=== PATIENT | female | born 1945 | race Caucasian/White ===

== ENCOUNTER → 2018-06-08 08:36 | Outpatient (CLI) | payer MEDICARE, OTHER, SELFPAY ==
[2018-06-08 09:39] LABS: Add Manual Diff / Slide Review NO; Eosinophils Percent Auto 2.1 % (2-4); Hematocrit 35.3 % (36-46); Hemoglobin 12.4 g/dL (12.0-16.0); Lymphocytes Percent Auto 37.6 % (25-40); Mean Corpuscular HGB Conc 35.2 % (30-36); Mean Corpuscular Hemoglobin 30.3 PG (26-34); Mean Corpuscular Volume 86.1 fL (80-100); Monocytes Percent Auto 8.5 % (3-14); Neutrophils Absolute Auto 3000 /uL (3000-5900); Neutrophils Percent Auto 50.8 % (50-75); Platelet Count 201 X10^3/uL (150-400); Red Cell Distribution Width 13.1 % (11.6-14.8); White Blood Cell Count 5.9 X10^3/uL (4.5-11.0)
[2018-06-08 09:52] LABS: Alanine Aminotransferase 32 IU/L (9-52); Albumin 4.7 g/dL (3.5-5.0); Albumin Globulin Ratio 1.7 (1.0-2.8); Alkaline Phosphatase 62 U/L (38-126); Aspartate Aminotransferase 40 IU/L (14-36); BUN Creatinine Ratio 18.8 (6-22); Bilirubin Total 0.5 mg/dL (0.2-1.3); Blood Urea Nitrogen 15 mg/dL (7-17); Calcium 9.4 mg/dL (8.4-10.2); Carbon Dioxide 31 mmol/L (22-32); Chloride 98 mmol/L (98-107); Cholesterol 170 mg/dL (140-199); Estimated Glomerular Filt Rate > 60.0 mL/min (>60); Globulin 2.8 g/dL (1.7-4.1); Glucose 106 mg/dL (80-110); HDL Cholesterol 46 mg/dL (40-60); HEMOLYSIS < 15 (0-50); LDL Cholesterol Calculated 53 mg/dL (<100); Potassium 3.5 mmol/L (3.4-5.1); Sodium 143 mmol/L (137-145); Total Protein 7.5 g/dL (6.3-8.2); Triglycerides 355 mg/dL (35-150)
[2018-06-08 09:56] LABS: Hemoglobin A1C% w Est Avg Glu 6.1 % (4.0-6.0)
== END ==
PROVIDERS: Family Provider Family Medicine; PCP Family Medicine; Visit Provider Family Medicine
DX: E11.9 Type 2 diabetes mellitus without complications (principal); E78.5 Hyperlipidemia, unspecified; I10 Essential (primary) hypertension
CPT/HCPCS: 36415; 80053; 80061; 83036; 85025

== ENCOUNTER → 2018-06-15 08:36 | Outpatient (CLI) | payer MEDICARE, OTHER, SELFPAY ==
--- NOTE | 2018-06-15 08:37 | DI.MG.S_ITS ---
BILATERAL DIGITAL SCREENING MAMMOGRAM 3D/2D WITH CAD POST LUMPECTOMY: 06/15/2018 CLINICAL: Routine screening. Personal history of right breast cancer. Family history of breast cancer. Comparison is made to exams dated: 06/01/2017 mammogram, 05/26/2016 mammogram, and 05/24/2015 mammogram - [facility]. There are scattered fibroglandular elements in both breasts. Current study was also evaluated with a Computer Aided Detection (CAD) system. There is a focal asymmetry in the left breast at 2 o'clock middle depth. No other significant masses, calcifications, or other findings are seen in either breast. IMPRESSION: INCOMPLETE: NEEDS ADDITIONAL IMAGING EVALUATION The focal asymmetry in the left breast is indeterminate. Additional views with possible ultrasound are recommended. This exam was interpreted at Station ID: [id number]. NOTE: For mammograms, a report in lay terms will be sent to the patient. Approximately 15% of breast malignancies will not be visualized mammographically. In the management of a palpable breast mass, a negative mammogram must not discourage biopsy of a clinically suspicious lesion. Electronically Signed By: Ewa guajardo/neftali:06/15/2018 15:05:29 letter sent: Additional Imaging Needed ACR BI-RADS Category 0: Incomplete [id number]
== END ==
PROVIDERS: Family Provider Family Medicine; PCP Family Medicine; Visit Provider Family Medicine
DX: Z12.31 Encounter for screening mammogram for malignant neoplasm of breast (principal); Z85.3 Personal history of malignant neoplasm of breast; Z80.3 Family history of malignant neoplasm of breast
CPT/HCPCS: 77063; 77067

== ENCOUNTER → 2018-06-15 11:57 | Outpatient (CLI) | payer MEDICARE, OTHER, SELFPAY ==
--- NOTE | 2018-06-15 12:00 | DI.RAD.S_ITS ---
PROCEDURE: XR THORACIC SPINE 3V INDICATIONS: point tenderness over T4 spinous process TECHNIQUE: 3 views of the thoracic spine were acquired. COMPARISON: None. FINDINGS: Bones: No fractures or dislocations. No suspicious bony lesions. Dextroscoliosis centered at the T10 level.Diffuse endplate spurring and sclerosis. There is mild diffuse disc space narrowing. Surgical clip projecting in the right upper quadrant. Incidentally noted lower cervical degeneration IMPRESSION: Dextroscoliosis and diffuse discogenic changes as above. Dictated by: Magan Parnell M.D. on 06/15/2018 at 12:34 Approved by: Magan Parnell M.D. on 06/15/2018 at 12:37
[2018-06-15 14:38] LABS: TSH w/ Reflex to FT4 1.01 uIU/mL (0.47-4.68)
== END ==
PROVIDERS: Family Provider Family Medicine; PCP Family Medicine; Visit Provider Family Medicine
DX: M51.24 Other intervertebral disc displacement, thoracic region (principal); M50.320 Other cervical disc degeneration, mid-cervical region, unspecified level; M41.84 Other forms of scoliosis, thoracic region; R53.83 Other fatigue
CPT/HCPCS: 36415; 72072; 84443

== ENCOUNTER → 2018-07-12 14:38 | Outpatient (CLI) | payer MEDICARE, OTHER, SELFPAY ==
--- NOTE | 2018-07-12 14:39 | DI.US.S_ITS ---
PROCEDURE: US BREAST LT LIMITED COMPARISON: None. INDICATIONS: Abnormal screening Mammo FINDINGS: IMPRESSION: Dictated by: Ewa Pedro M.D. on 07/12/2018 at 18:29 Approved by: Ewa Pedro M.D. on 07/12/2018 at 18:31
--- NOTE | 2018-07-12 14:39 | DI.MG.S_ITS ---
UNILATERAL LEFT DIGITAL DIAGNOSTIC MAMMOGRAM 3D/2D WITH ADDITIONAL VIEWS: 07/12/2018 CLINICAL: Additional evaluation requested from prior study. Personal history of breast cancer. Comparison is made to exams dated: 06/15/2018 mammogram, 06/01/2017 mammogram, 11/10/2016 mammogram, and 05/26/2016 mammogram - [facility]. There are scattered fibroglandular elements in left breast. There is a focal asymmetry in the left breast at 5 o'clock middle depth. This is seen in additional views. No other significant masses or calcifications are seen in the breast. IMPRESSION: INCOMPLETE: NEEDS ADDITIONAL IMAGING EVALUATION The focal asymmetry in the left breast is indeterminate. A targeted ultrasound of the left breast is recommended and will be performed immediately following this exam. This exam was interpreted at Station ID: [id number]. NOTE: For mammograms, a report in lay terms will be sent to the patient. Approximately 15% of breast malignancies will not be visualized mammographically. In the management of a palpable breast mass, a negative mammogram must not discourage biopsy of a clinically suspicious lesion. Electronically Signed By: Ewa guajardo/:07/12/2018 15:12:27 letter sent: Additional Imaging Needed ACR BI-RADS Category 0: Incomplete [id number]
== END ==
PROVIDERS: PCP Family Medicine; Visit Provider Family Medicine
DX: R92.8 Other abnormal and inconclusive findings on diagnostic imaging of breast (principal); N63.23 Unspecified lump in the left breast, lower outer quadrant; Z85.3 Personal history of malignant neoplasm of breast
CPT/HCPCS: 76642; 77065; G0279

== ENCOUNTER → 2018-08-05 08:45 | Outpatient (CLI) | payer MEDICARE, OTHER, SELFPAY ==
--- NOTE | 2018-08-05 08:49 | DI.US.S_ITS ---
ULTRASOUND GUIDED BIOPSY LEFT BREAST USING VACUUM DEVICE WITH MARKING DEVICE INSERTED AND POST MAMMOGRAPHIC IMAGIN08/05/2018 CLINICAL: Left breast mass. PATIENT CONSENT: Risks (minor bleeding, infection, vasovagal reaction and repeat procedure), benefits and alternatives were explained to the patient and written informed consent was obtained. Correlation is made to exams dated: 08/05/2018 mammogram, 07/12/2018 ultrasound, and 07/12/2018 mammogram - [facility]. An ultrasound guided biopsy using real-time ultrasound was performed for the 1.5 cm x 1.7 cm x 0.9 cm taller than wide irregular shaped mass located in the left breast at 5 o'clock middle depth 8 cm from the nipple. The skin was prepped in the usual manner. Local anesthetic was administered to the access site. A small incision was made in the breast. The abnormality was approached from the lateral aspect. A 10 gauge biopsy needle was placed adjacent to the abnormality under ultrasound guidance. Once the needle was documented to be in the correct location, six specimens were obtained using the Mammotome biopsy system. A Vision Marker clip was inserted into the biopsy cavity. Post procedure mammographic imaging demonstrates the location device 2.5cm posterior from the geometric center of the targeted area. The specimens were sent to the laboratory for pathological analysis. IMPRESSION: ULTRASOUND GUIDED BIOPSY MALIGNANT Ultrasound guided biopsy of the 1.5 cm x 1.7 cm x 0.9 cm taller than wide mass in the left breast at 5 o'clock middle depth 8 cm from the nipple was successful. 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 Pathology results are concordant with mammography and ultrasound findings. This exam was interpreted at Station ID: [id number]. Harpal rosario,mallorie/:08/09/2018 09:38:55
--- NOTE | 2018-08-05 15:00 | DI.MG.S_ITS ---
Patient Name: SCOTTIE RICO date: 1945 Sex: F Attending Physician: Chapito Indications: Date: 08/05/2018 10:23 At the request of: LUIS SCOTT Procedure: MM diagnostic mammo [id number] UNILATERAL LEFT DIGITAL DIAGNOSTIC MAMMOGRAM POST-NEEDLE BIOPSY: 08/05/2018 CLINICAL: Post clip placement. Left breast mass. Comparison is made to exams dated: 07/12/2018 ultrasound, 07/12/2018 mammogram, 06/15/2018 mammogram, and 06/01/2017 mammogram - [facility]. There are scattered fibroglandular elements in left breast. There is a marker clip in the appropriate position in the left breast at 5 o' clock middle depth. IMPRESSION: POST PROCEDURE MAMMOGRAM FOR MARKER PLACEMENT There was a successful marker clip placement in the left breast middle depth. This exam was interpreted at Station ID: [id number]. NOTE: For mammograms, a report in lay terms will be sent to the patient. Approximately 15% of breast malignancies will not be visualized mammographically. In the management of a palpable breast mass, a negative mammogram must not discourage biopsy of a clinically suspicious lesion. Electronically Signed By: Harpal Meehan M.D. aty/:08/05/2018 21:46:53 ACR BI-RADS Category Post-procedure mammogram for marker placement
--- NOTE | 2018-08-05 20:57 | PATH_ITS ---
[facility]: [id number] [id number] Control ID: [id number] [facility] [address] [facility] [address] PATHOLOGY ONLY Patient Details SCOTTIE RICO : 1945 Age(y/m/d): Gender: F SSN: Specimen Details Date collected: 08/05/20182056 Local Date received: 08/05/2018 Date entered: 08/05/2018 Date reported: 08/10/2018 1210 ET Physician Details Ordering: Pushpa URIARTE Referring: ID: Additional Information: Clinical Info: [id number] Pathology Report, Tests Ordered:, Clinician Provided ICD Code(s) & Clinical History: MASS 5 O'CLOCK, 8 CM FROM NIPPLE, () Material Submitted: () Gross Description: () Received one formalin-filled container labeled with the patient's name and designated left breast mass 5 o'clock 8 cm from nipple. The specimen is received with a plastic filter in the container, sample loose in container, and consists of light yellow-espinoza to see tissue which aggregate to 2.0 x 1.0 x 0.3 cm. The specimen is entirely submitted in one cassette. Collection date: 08/05/2018. Collection time per container: 10:10 AM. Total fixation time: 24 hours, up to 48. (DC: [id number]) /FRR LEFT BREAST MASS Diagnosis: (02) Left Breast Mass, 5 O?clock, 8 CM from Nipple, Core Needle, Biopsies: , Invasive ductal carcinoma with the following features: 1. Maia grade 2 of 3 (poor tubule formation- 3, intermediate nuclear pleo morphism - 2, low mitotic rate - 1). 2. Greatest linear extent: 8 mm. 3. Ductal carcinoma in situ: Present, intermediate to high, nuclear, grade with solid and papillary architecture, no necrosis., 4. Micro calcifications: Present in association with DCIS., 5. Lymph vascular invasion: Not identified., 6. Prognostic markers: Will be performed, and the results, reported, as an addendum., BFI/08/08/2018, Pathologist Provided ICD Code(s): (02), C50.912, CPT Codes: (02), 862547, O96252, B40085, As part of routine quality assurance consultant, Dr. Ramírez has also reviewed this case and agrees with the diagnosis. Dr. Meza gave preliminary results to Huang in Dr. Uriarte's office on 08/08/18. ADDENDUM: This is an addendum to report the results of immunohistochemistry. The final diagnosis is not changed. RESULTS: E-cadherin: Positive. Estrogen Receptor (SP1): Strongly positive, 95% of cells. Progesterone Receptor (1E2): Negative, less than 1% of cells. HER2 (4B5): Negative (Score 1+). TECHNICAL NOTE: Testing performed on block A1. Cold ischemia and fixation times meet requirements in the latest version of the ASCO/CAP guidelines. The scoring criteria for breast biomarkers by immunohistochemistry is based on the current ASCO/CAP guidelines (Johnny et al, Arch Pathol Lab Med 2010: 134(6): 907-922 / Netta BRASWELL et al, Arch Pathol Lab Med 2014: 138(2): 241- 256). Deparaffinized sections of formalin fixed tissue (along with appropriate positive controls) are incubated with the above antibody(s). Using the automated [place] stainer, tissue is incubated with the designated antibody* which is then localized by a non-biotin, dual polymer detection system. The external controls are reviewed for appropriate reactivity and found to be adequate. Results on the target cell population are indicated above. These tests have not been validated on decalcified tissue. * This test was developed and its performance characteristics determined by [employer]. It has not been cleared or approved by the U.S. Food and Drug Administration. The FDA has determined that such clearance or approval is not necessary. This test is used for clinical purposes. It should not be regarded as investigational or for research. MRV/08/09/2018 Addendum Electronically Signed by Allison Meza MD, Pathologist ACC: [id number] PID: [id number] A duplicate report has been generated due to demographic updates. Electronically signed by (02) Allison Meza MD, Pathologist NPI- [id number]
== END ==
PROVIDERS: PCP Family Medicine; Visit Provider Family Medicine
DX: C50.512 Malignant neoplasm of lower-outer quadrant of left female breast (principal); Z17.0 Estrogen receptor positive status [ER+]
CPT/HCPCS: 19083; 77065; 88307; 88341; 88342

== ENCOUNTER 2018-09-15 07:28 | Day surgery (SDC) | payer MEDICARE, OTHER, SELFPAY ==
[2018-09-14 15:21] VITALS: BMI 32.5
[2018-09-15] VITALS (7 sets, daily range): BP systolic 117–153; BP diastolic 76–92; PULSE 80–111; RESP 11–16; TEMP 36–36.7; O2SAT 94–98; BMI 32.5
--- NOTE | 2018-09-15 | DI.MG.S_ITS ---
SPECIMEN LEFT BREAST: 09/15/2018 CLINICAL: Left breast specimen. Correlation is made to exams dated: 09/15/2018 mammogram, 08/05/2018 mammogram, and 07/12/2018 mammogram - [facility]. A surgical specimen was imaged for the area of grouped calcifications located in the left breast at 3 o'clock anterior depth. IMPRESSION: SPECIMEN The imaged specimen includes the lesion, the calcifications, and the distal portion of the localization wire. The biopsy clip is not in the specimen as it was found to be distant from the biopsy site/mass. Discussed with Dr. Gu . Waiting for pathology results. A final report will be issued when these become available. This exam was interpreted at Station ID: [id number]. Magan ospina/:09/15/2018 12:29:07
--- NOTE | 2018-09-15 | DI.MG.S_ITS ---
UNILATERAL LEFT DIGITAL DIAGNOSTIC MAMMOGRAM POST-NEEDLE BIOPSY: 09/15/2018 CLINICAL: Left breast cancer. Comparison is made to exams dated: 08/05/2018 ultrasound biopsy, 08/05/2018 mammogram, and 07/12/2018 mammogram - [facility]. There are scattered fibroglandular elements in left breast. There is a localization wire in the appropriate position in the left breast at 3 o'clock middle depth. IMPRESSION: POST PROCEDURE MAMMOGRAM FOR MARKER PLACEMENT Successful wire localization of previously biopsied mass. The thick segment of the wire is centered in the mass. The biopsy clip is noted to be distant from the mass (posterior) This was personally discussed with Dr. Gu on 09/15/18. This exam was interpreted at Station ID: [id number]. NOTE: For mammograms, a report in lay terms will be sent to the patient. Approximately 15% of breast malignancies will not be visualized mammographically. In the management of a palpable breast mass, a negative mammogram must not discourage biopsy of a clinically suspicious lesion. Electronically Signed By: Magan ospina/:09/15/2018 12:05:45 ACR BI-RADS Category Post-procedure mammogram for marker placement
--- NOTE | 2018-09-15 | DI.US.S_ITS ---
ULTRASOUND GUIDED WIRE LOCALIZATION LEFT BREAST: 09/15/2018 CLINICAL: Pre-op wire localization with ultrasound guidance. Correlation is made to exams dated: 08/05/2018 ultrasound biopsy, 08/05/2018 mammogram, 07/12/2018 ultrasound, 07/12/2018 mammogram, 06/15/2018 mammogram, and 06/01/2017 mammogram - [facility]. A wire localization using ultrasound guidance was performed for the indistinct irregular shaped mass located in the left breast at 3 o'clock middle depth. This was described on the previous ultrasound report. The skin was prepped in the usual manner. Local anesthetic was administered to the access site. The localization was approached from the lateral aspect. A wire was inserted into the targeted area under ultrasound guidance. Post placement imaging demonstrates the tip traverses the targeted area. Of note the biopsy clip is distant from the mass, seen posterior to the area on the same day mammograms IMPRESSION: WIRE LOCALIZATION Wire localization for the mass in the left breast at 3 o'clock middle depth was successful. A specimen radiograph is recommended. This exam was interpreted at Station ID: [id number]. Magan ospina/:09/15/2018 12:01:58
--- NOTE | 2018-09-15 | PATH_ITS ---
[facility] Accession Number: [id number] . 01 Material submitted: . PART A: LEFT BREAST PART B: LEFT SENTINEL NODE x2 PART C: LEFT AXILLARY FAT . 01 Clinical history: . C: CHECK FOR LYMPH NODE . 02 Diagnosis: . . A. Invasive carcinoma of the breast (see CAP Breast Cancer Summary below). . CAP CANCER SUMMARY: 1. Procedure: Excision (wire localized). 2. Specimen laterality: Left. 3. Tumor site: Lower outer quadrant (5 o'clock). 4. Tumor size: 1.8 x 1.7 x 0.8 cm. 5. Histologic type: Invasive ductal carcinoma, no special type. 6. Histologic grade (Como histologic score) Glandular (tubular) differentiation: Score 2 of 3. Nuclear pleomorphism: Score 2 of 3. Mitotic rate: Score 2 of 3. Overall grade: Grade 2 (score 6 of 9). 7. Tumor focality: Single focus. 8. Ductal carcinoma in situ: Not identified. 9. Margins: All resection margins negative for tumor (closest margin inferior at 0.9 cm). 10. Regional lymph nodes (see parts B and C): All lymph nose negative for tumor. Number of lymph nodes examined: 8. Number of sentinel lymph nodes examined: 3. 11. Lymph-vascular invasion: Not identified. 12. Pathologic stage: pT1c pN0. 13. Ancillary studies: Hormone receptors not performed. Presumably performed on previous biopsies. Receptor studies can be repeated if requested. . B. [facility] Lymph Node, Biopsy: Three lymph nodes negative for malignancy. . C. Additional Axillary Lymph Nodes: Five lymph nodes negative for malignancy. MRV/09/19/2018 . 02 Electronically signed: . Kahlil Mclain MD, Pathologist NPI- [id number] . 01 Gross description: . (A) Received in formalin, labeled left breast cancer, long suture anterior, short suture lateral. . Specimen: One left partial mastectomy. Weight: 59 grams. Measurement: 3.2 cm anterior to posterior, 6.9 cm medial to lateral, and 5.8 cm superior to inferior. Skin Ellipse: Absent. Wire: One localization wire is present penetrating at the anterior inferior lateral junction and terminating within the specimen. Margins: Oriented with long anterior suture and short lateral suture and inked as follows: posterior=black; anterior=purple; superior=blue; inferior=green; medial=yellow; lateral=orange. Slice: Medial to lateral into seventeen slices. Lesions: One solid firm white irregular mass. Size: 1.8 x 1.7 x 0.8 cm. Slices Involved: Slices #10-14. Biopsy Site: Not able to be determined. No biopsy clip identified. Distance to Margins: 1.5 cm from the anterior margin, 1.5 cm from the posterior margin, 1.4 cm from the superior margin, 0.9 cm from the inferior margin, 3.3 cm from the medial margin, and 1.0 cm from the lateral margin. Other: The remaining cut surfaces consists of yellow lobulated adipose tissue containing a see-white fibrous area with a gritty texture (2.7 x 1.8 x 0.8 cm) involving slices #6-15. This area is 0.5 cm from the mass. Fixation Time: The specimen was placed in formalin on 09/15/2018 with no time given. The approximate total fixation time in formalin is 69 hours and 30 minutes. Sections: A1: Slice 1, medial end of specimen, perpendicular, entirely submitted. A2-A4: Slice 5, slice medial to irregular gritty area, entirely submitted superior to inferior. A5-A6: Slice 6, sales representative gritty tissue with posterior margin. A7-A8: Slice 7, sales representative gritty tissue with posterior and inferior margins. A9-10: Slice 8, sales representative gritty tissue with anterior, posterior, and inferior margins. A11-A14: Slice 9, slice medial to mass, gritty tissue, slice entirely submitted. A15-A16: Slice 10, termination site of localization wire, sales representative with mass and surrounding gritty tissue. A17-A20: Slice 11, entirely submitted. A21-A24: Slice 12, entirely submitted. A25-A28: Slice 13, entirely submitted. A29-A32: Slice 14, entirely submitted. A33-A36: Slice 15, gritty tissue lateral to mass, slice entirely submitted. A37-A38: Slice 16, tissue lateral to gritty tissue, slice entirely submitted. A39: Slice 17, lateral end of specimen, perpendicular, entirely submitted. (B) Received in formalin, labeled left sentinel node X2, are multiple lymph nodes (0.4 cm - 1.8 cm) with attached adipose tissue. Section code: (B1) one intact lymph node; (B2) one serially sectioned lymph node; (B3-B4) one lymph node, serially sectioned; (B5) remaining adipose tissue. Specimen entirely submitted. (C) Received in formalin, labeled left axillary fat, check for lymph nodes, are multiple pieces of espinoza-yellow rubbery adipose tissue (4.5 x 3.5 x 1.5 cm in aggregate) containing multiple lymph nodes (0.1 cm- 1.0 cm). Section code: (C1) multiple intact lymph nodes; (C2) one bisected lymph node. ([id number]) /[facility] . 02 Pathologist provided ICD-10: C50.312 . 02 CPT . 236450, 064174, 748748 Performed at: 01 [facility] [address] [place] [address] [id number] MD Wes Mireles MD Phone: [phone] Performed at: 02 [facility] [id number] [place] [address] [id number] MD Allison Meza MD Phone: [phone]
--- NOTE | 2018-09-15 07:30 | DI.NM.S_ITS ---
PROCEDURE: NM SENTINEL NODE W IMAGING RADIOPHARMACEUTICAL: 0.5-1.0 mCi Millipore filtered Tc-99m sulfur colloid. INDICATIONS: Left-sided breast cancer TECHNIQUE: The area around the nipple was prepped and draped in a sterile fashion. Tc-99m sulfur colloid was injected intra-dermally in the outer edge of the areola in the left breast. Images were obtained subsequently. A body contour outline was obtained. FINDINGS: There are multiple lymph node(s) in the ipsilateral breast and axilla. IMPRESSION: Multiple lymph nodes are identified in left breast and ipsilateral axilla. Dictated by: Shashi Carlin M.D. on 09/15/2018 at 10:46 Approved by: Shashi Carlin M.D. on 09/15/2018 at 11:09
--- NOTE | 2018-09-15 07:57 | SUR.PREOP ---
pt picked up to go to IR dept soon after arrival.
--- NOTE | 2018-09-15 09:49 | PM.HP.1 ---
History of Present Illness Date Patient Seen: 09/15/18 Time Patient Seen: 07:50 Chief complaint: [id number] L BREAST LUMPECTOMY W/SN MAPPING Narrative: Patient is a woman who ultimately has decided to undergo a lumpectomy and sentinel node biopsy of her left breast for invasive cancer diagnosed by minimally invasive biopsy. She is here for that procedure. Patient History Medical History Invasive ductal carcinoma of breast (Acute) Anxiety state, unspecified (Chronic 05/04/14) Hyperlipidemia (Chronic) Class 1 obesity (Chronic) History of malignant neoplasm of female breast (Resolved 2001) Essential hypertension (Chronic ~1989) Meralgia paresthetica of right side (Inactive 05/27/15) Type 2 diabetes mellitus without complication (Chronic 04/26/14) Macular degeneration (Chronic 04/16/16) Anemia (Acute) Breast cancer, right (Acute) Pneumonia (Acute) Asthma (Chronic) CTS (carpal tunnel syndrome) (Chronic 2002) Chronic back pain (Chronic) Depression (Chronic 1974) Hayfever (Chronic) Hearing loss (Chronic ~2008) Myasthenia gravis (Chronic) Ovarian cyst (Chronic ~2008) RLS (restless legs syndrome) (Chronic 1963) Recurrent sinusitis (Chronic) Rosacea (Chronic 2013) Scoliosis (Chronic ~2003) Sleep apnea (Chronic 2011) Tinnitus (Chronic 2002) Cataracts, bilateral (Resolved 2014) Chicken pox (Resolved 1948) Measles (Resolved 194) Mumps (Resolved 1947) Vertigo (Resolved) Surgical History Anesthesia (Resolved) History of cataract removal with insertion of prosthetic lens (Resolved 2014) History of ovarian cystectomy (Resolved ~2003) History of tonsillectomy (Resolved 194) Hx of cholecystectomy (Resolved) Status post breast lumpectomy (Resolved 2001) Status post hysterectomy (Resolved 1976) Family History Brother Cancer Hypertension High cholesterol COPD (chronic obstructive pulmonary disease) Heart failure Father Stroke Emphysema of lung Grandfather Stroke Heart attack Grandmother Stroke Mother Age: 93 Diabetes mellitus Hypertension High cholesterol Age-related macular degeneration Sister Age: 73 Hypertension High cholesterol Emphysema of lung Grandfather No problems noted. Grandmother Heart attack Brother Brain cancer Sister No problems noted. Sister Breast cancer Sister Breast cancer History of bilateral mastectomy Family/Other Breast cancer Social History marital status: number of children: 3 household members: spouse occupational status: unemployed Smoking Status: Former smoker alcohol intake: current substance use type: does not use Family & Social History Family History Brother Cancer Hypertension High cholesterol COPD (chronic obstructive pulmonary disease) Heart failure Father Stroke Emphysema of lung Grandfather Stroke Heart attack Grandmother Stroke Mother Age: 93 Diabetes mellitus Hypertension High cholesterol Age-related macular degeneration Sister Age: 73 Hypertension High cholesterol Emphysema of lung Grandfather No problems noted. Grandmother Heart attack Brother Brain cancer Sister No problems noted. Sister Breast cancer Sister Breast cancer History of bilateral mastectomy Family/Other Breast cancer Social History: household members spouse Tobacco & Substance use: Smoking Status Former smoker alcohol intake current Substance Use Type does not use Meds Home Medications Medication Instructions Recorded Confirmed Type ASPIRIN (Aspirin EC) 81 mg PO Q DAY #0 05/31/12 08/17/18 History Ascorbic Acid/Copper/Lutein/ 1 sgl PO BID #0 05/31/12 08/11/18 History (#PRESERVISION LUTEIN) PEG-400/Propylene Glycol (#SYSTANE 1 vladislav OP PRN #0 05/31/12 08/11/18 History 0.4%-0.3%) CHOLECALCIFEROL (VITAMIN D3) 2,000 units PO SEE INSTRUCTIONS #0 03/22/13 08/24/18 History (VITAMIN D) zoster vaccine live (PF) [Zostavax 0.5 ml SQ SEE INSTRUCTIONS #1 ea 04/16/16 08/11/18 Rx (PF)] metoprolol succinate ER 25 mg 25 mg PO QDAY #90 tab 12/13/17 08/11/18 Rx tablet,extended release 24 hr metformin [Glucophage] 500 mg PO BID #180 tab 06/08/18 08/17/18 Rx lactobacillus combination no.8 3 3,000 mmu cells PO DAILY 06/15/18 08/17/18 History billion cell capsule chlorthalidone 25 mg PO QDAY #90 tab 12/13/18 01/23/19 Rx simvastatin 40 mg tablet 40 mg PO Q DAY #30 tab 07/07/18 08/17/18 Rx alprazolam 0.5 mg tablet 0.5 mg PO Q6H PRN #30 tab 07/20/18 08/11/18 Rx potassium chloride ER 10 mEq 10 meq PO BID #180 tab 08/12/18 08/17/18 Rx tablet,extended release losartan 25 mg PO BID #180 tab 09/13/18 Rx Allergies Allergy/AdvReac Type Severity Reaction Status Date / Time procaine [PROCAINE] Allergy Mild EDEMA Verified 08/17/18 11:07 zinc [ZINC] Allergy Mild HIVES Verified 08/17/18 11:07 succinylcholine AdvReac Intermediate difficulty Verified 08/17/18 11:07 waking up Sulfa (Sulfonamide AdvReac Mild (FAMILY Verified 08/17/18 11:07 Antibiotics) ALLERGY) [SULFA (SULFONAMIDE MAKES ILL ANTIBIOTICS)] Review of Systems Review of Systems No chest pain acute breathing problems, black or bloody bowel movements, seizures or blackouts. Bracket testing was negative Exam Narrative Exam Narrative: Co Operative no apparent distress. Lungs are clear to auscultation no rales or rhonchi. Heart regular rate and rhythm no murmur gallop. Bhargav mostly resolved left breast. No palpable axillary nodes. Left breast larger than right. Abdomen soft nontender without mass. Patient alert and oriented x3. Assessment & Plan Assessment & Plan narrative: Patient is woman here for lumpectomy and sentinel node biopsy. I have discussed the procedures with her in the office including risks and benefits. She appears to understand and wishes to proceed with lumpectomy and sentinel node biopsy..
--- NOTE | 2018-09-15 09:54 | PM.PREOP ---
Pre-operative Note Interval Note History & Physical reviewed/Exam performed by Physician: Yes Changes to H&P: No
[2018-09-15] MEDS: LACTATED RINGERS 1,000 ML 42 ML IV ×2 (10:24→12:56)
[2018-09-15] MEDS: CEFAZOLIN 2 GM/100 ML FROZ.PIGGY IV (10:45)
--- NOTE | 2018-09-15 11:01 | SUR.OPER ---
Supine on padded OR bed, head on pillow, gel axillary roll vertical under left lateral chest, arms secured on padded arm boards at <90 degrees abduction, legs uncrossed, safety belt at thigh, tape over blanket over lower legs.
[2018-09-15] MEDS: BUPIVACAINE 0.5% (PF) VIAL 30 ML INJ (11:08)
--- NOTE | 2018-09-15 13:09 | PM.OP.1 ---
Operative Date/Time/Diagnoses Date of procedure: 09/15/18 Time of procedure: 13:09 Pre-op diagnosis: Breast cancer left side Post-op diagnosis: same Procedure & Clinicians Procedure: Needle localization with lumpectomy with sentinel node biopsy Same procedure as scheduled: Yes Indications: Breast cancer Surgeon: Harsh Gu Anesthesia Type: General Operative Notes Findings: Two sentinel nodes counts of 75,000 and 04333 at 10 sec Closure Type: primary Specimen(s): other (Lump, sentinel nodes, axillary fat.) Prosthetic devices, grafts, tissues, transplants, or devices: None Estimated Blood Loss (mL): 75 Blood products transfused: none Procedure in detail: The patient is placed supine on the operating room table and underwent general LMA anesthesia. A roll was placed under left flank her left arm supported. She was prepped and draped in the usual fashion taking care not to move the wire. Curvilinear incision was made overlying the mass which was palpable. Using palpation and the wire as a guide I excised this mass with what appeared to be generous margins. Hemostasis was achieved with cautery. The cavity was marked with clips. The cavity was then closed with interrupted 3 0 Vicryl reapproximating tissue. The skin was closed with a running 4 0 Vicryl subcuticular stitch and Steri-Strips which were applied at the end of the case. Using completely separate instruments a transverse incision was made in the inferior axillary fold which was well defined in this patient. Was carried into the axilla proper in using Neoprobe identified 2 lymph nodes with counts that were significant. These were removed. This was a very tedious process as the nodes were high in the axilla and directly overlying the nerve to the latissimus Lemus. The nerve was carefully preserved. Hemostasis was carefully achieved with clips and cautery. The axilla was closed with interrupted 3 0 Vicryl. The subcu was closed with interrupted 3 0 Vicryl and skin was closed with a running 4 0 Vicryl subcuticular stitch and Steri-Strips. Dressings were applied the patient was taken to the recovery area in good condition.. Complications: none Condition: stable Disposition: PACU Plan for aftercare: Follow-up in the office
[2018-09-15] MEDS: HYDROCODONE/ACET 5/325 TABLET 1 TAB PO (14:12)
== END 2018-09-15 14:26 | disposition home or self-care (01) ==
PROVIDERS: PCP Family Medicine; Visit Provider Specialist
PROC: (CPT 19301; principal; 2018-09-15 09:45)
DX: C50.312 Malignant neoplasm of lower-inner quadrant of left female breast (principal); F41.9 Anxiety disorder, unspecified; E66.9 Obesity, unspecified; I10 Essential (primary) hypertension; E11.9 Type 2 diabetes mellitus without complications; Z79.84 Long term (current) use of oral hypoglycemic drugs; D64.9 Anemia, unspecified; J45.909 Unspecified asthma, uncomplicated; G47.30 Sleep apnea, unspecified
CPT/HCPCS: 38525; 19301; 19285; 76098; 77065; 78195; 88305; 88307; A9541; J0690; J2250; J2405; J2704; J3010

== ENCOUNTER → 2018-12-23 15:56 | Outpatient (CLI) | payer MEDICARE, OTHER, SELFPAY ==
[2018-12-23 17:32] LABS: BUN Creatinine Ratio 21.3 (6-22); Blood Urea Nitrogen 17 mg/dL (7-17); Calcium 9.9 mg/dL (8.4-10.2); Carbon Dioxide 33 mmol/L (22-32); Chloride 95 mmol/L (98-107); Estimated Glomerular Filt Rate > 60.0 mL/min (>60); Glucose 118 mg/dL (80-110); HEMOLYSIS < 15 (0-50); Potassium 3.7 mmol/L (3.4-5.1); Sodium 137 mmol/L (137-145)
[2018-12-23 18:11] LABS: Hemoglobin A1C% w Est Avg Glu 5.7 % (4.0-6.0)
== END ==
PROVIDERS: PCP Family Medicine; Visit Provider Family Medicine
DX: E11.9 Type 2 diabetes mellitus without complications (principal); I10 Essential (primary) hypertension
CPT/HCPCS: 36415; 80048; 83036

== ENCOUNTER → 2019-01-09 12:04 | Outpatient (CLI) | payer MEDICARE, OTHER, SELFPAY | PROVIDERS: PCP Family Medicine | DX: C50.919 Malignant neoplasm of unspecified site of unspecified female breast (principal); M85.852 Other specified disorders of bone density and structure, left thigh; Z78.0 Asymptomatic menopausal state; E11.9 Type 2 diabetes mellitus without complications; Z79.811 Long term (current) use of aromatase inhibitors; Z90.722 Acquired absence of ovaries, bilateral | CPT/HCPCS: 77080 ==

== ENCOUNTER → 2019-03-24 12:53 | Outpatient (CLI) | payer OTHER, MEDICARE, SELFPAY ==
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
== END ==
PROVIDERS: PCP Family Medicine; Visit Provider Family Medicine
DX: S20.211A Contusion of right front wall of thorax, initial encounter (principal); V89.2XXA Person injured in unspecified motor-vehicle accident, traffic, initial encounter
CPT/HCPCS: 76604

== ENCOUNTER → 2019-08-02 08:44 | Outpatient (CLI) | payer MEDICARE, OTHER, SELFPAY ==
--- NOTE | 2019-08-02 08:45 | DI.MG.S_ITS ---
BILATERAL DIGITAL SCREENING MAMMOGRAM 3D/2D WITH CAD POST LUMPECTOMY: 08/02/2019 CLINICAL: Routine screening. Personal history of bilateral breast cancer. Family history of breast cancer. Comparison is made to exams dated: 09/15/2018 mammogram, 07/12/2018 mammogram, 06/15/2018 mammogram, 06/01/2017 mammogram, and 11/10/2016 mammogram - [facility]. There are scattered fibroglandular elements in both breasts. Current study was also evaluated with a Computer Aided Detection (CAD) system. There is an irregular high density asymmetry with coarse dystrophic calcifications in the right breast at 1 o'clock anterior depth. There is skin retraction associated with the asymmetry. No other significant masses, calcifications, or other findings are seen in either breast. IMPRESSION: INCOMPLETE: NEEDS ADDITIONAL IMAGING EVALUATION The irregular high density asymmetry in the right breast is indeterminate. A diagnostic mammogram and ultrasound is recommended. This exam was interpreted at Station ID: [id number]. NOTE: For mammograms, a report in lay terms will be sent to the patient. Approximately 15% of breast malignancies will not be visualized mammographically. In the management of a palpable breast mass, a negative mammogram must not discourage biopsy of a clinically suspicious lesion. Electronically Signed By: Laverne gr/neftali:08/02/2019 10:07:58 letter sent: Additional Imaging Needed ACR BI-RADS Category 0: Incomplete [id number]
== END ==
PROVIDERS: PCP Family Medicine
DX: Z12.31 Encounter for screening mammogram for malignant neoplasm of breast (principal); Z80.3 Family history of malignant neoplasm of breast; C50.912 Malignant neoplasm of unspecified site of left female breast; Z17.0 Estrogen receptor positive status [ER+]; Z79.811 Long term (current) use of aromatase inhibitors
CPT/HCPCS: 77063; 77067

== ENCOUNTER → 2019-08-23 13:17 | Outpatient (CLI) | payer MEDICARE, OTHER, SELFPAY ==
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
--- NOTE | 2019-08-23 | DI.US.S_ITS ---
ULTRASOUND OF RIGHT BREAST: 08/23/2019 CLINICAL: Patient returns today to evaluate a focal asymmetry in the right breast. Comparison is made to exams dated: 08/23/2019 mammogram, 08/02/2019 mammogram, 06/15/2018 mammogram, 06/01/2017 mammogram, 11/10/2016 mammogram, and 05/26/2016 mammogram - [facility]. Color flow and real-time ultrasound of the right breast were performed. Murray scale images of the real-time examination were reviewed. There is a 1.3 cm x 1.1 cm x 1.1 cm cyst with debris in the right breast at 11 o'clock anterior depth 6 cm from the nipple. This correlates with one of the mammography findings. Color flow imaging demonstrates that there is no vascularity present. There also are multiple various size cysts, many complicated, in the right breast superior lateral quadrant anterior depth. The largest measures 1.0 cm. There is also mildly heterogeneous, avascular serpiginous hypoechoic tissue amidst fibrous tissue, likely resolving hemorrhage. These correlate with mammography findings. Color flow imaging demonstrates that there is no vascularity present. IMPRESSION: PROBABLY BENIGN Sonographic findings in the right breast superior lateral quadrant anterior depth correlate with mammographic findings, are consistent with history of healing tissue trauma and are probably benign. Follow-up mammogram and ultrasound in 6 months is recommended to ensure resolution or document stability. Findings and recommendations were conveyed to the patient at time of exam. This exam was interpreted at Station ID: [id number]. Electronically Signed By: Laverne gr/:08/23/2019 18:29:21 letter sent: Followup Recommended Ultrasound BI-RADS: 3 Probably benign
== END ==
PROVIDERS: PCP Family Medicine; Visit Provider Family Medicine
DX: R92.8 Other abnormal and inconclusive findings on diagnostic imaging of breast (principal); R92.1 Mammographic calcification found on diagnostic imaging of breast; N64.89 Other specified disorders of breast; N60.01 Solitary cyst of right breast; S20.01XD Contusion of right breast, subsequent encounter; X58.XXXD Exposure to other specified factors, subsequent encounter
CPT/HCPCS: 76642; 77065; G0279

== ENCOUNTER → 2020-03-26 09:03 | Outpatient (CLI) | payer MEDICARE, OTHER, SELFPAY ==
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
--- NOTE | 2020-03-26 11:00 | DI.US.S_ITS ---
Patient Name: SCOTTIE RICO date: 1945 Sex: F Attending Physician: POLINA Indications: Date: 03/26/2020 10:54 At the request of: MEGHNA FISH Procedure: US breast RT limited LIMITED ULTRASOUND OF RIGHT BREAST: 03/26/2020 CLINICAL: 6 month follow-up lumpectomy. Comparison is made to exams dated: 03/26/2020 mammogram, 08/23/2019 ultrasound, 08/23/2019 mammogram, 08/02/2019 mammogram, 06/15/2018 mammogram, and 06/01/2017 mammogram - [facility]. Color flow ultrasound of the right breast 10-12 o'clock region was performed. Murray scale images of the real-time examination were reviewed. There is a benign 1.1 cm cyst with debris in the right breast at 11 o'clock anterior depth 6 cm from the nipple. This abnormality is decreased in size and correlates with mammography findings. Color flow imaging demonstrates that there is no vascularity present. There also are multiple benign various size cysts with debris in the right breast superior lateral quadrant anterior depth. These abnormalities are less prominent and correlate with mammography findings. Color flow imaging demonstrates that there is no vascularity present. IMPRESSION: BENIGN There is no sonographic evidence of malignancy. The 1.1 cm cyst with debris in the right breast at 11 o'clock anterior depth is benign. Findings most likely represent an evolving hematoma or oil cyst related to prior trauma. The multiple various size cysts with debris in the right breast superior lateral quadrant anterior depth most likely are an oil cyst and are benign. A 1 year screening mammogram is recommended. This exam was interpreted at Station ID: [id number]. Electronically Signed By: Deangelo méndez/neftali:03/26/2020 11:58:21 Continued Report - Page 2 of 2 Patient Name: SCOTTIE RICO date: 1945 Sex: F Attending Physician: POLINA Indications: Date: 03/26/2020 10:54 At the request of: MEGHNA FISH Procedure: US breast RT limited letter sent: Normal Exam Ultrasound BI-RADS: 2 Benign
== END ==
PROVIDERS: PCP Physician Assistant Medical; Referring Provider Physician Assistant Medical; Visit Provider Family Medicine
DX: R92.8 Other abnormal and inconclusive findings on diagnostic imaging of breast (principal); N60.01 Solitary cyst of right breast; Z85.3 Personal history of malignant neoplasm of breast
CPT/HCPCS: 76642; 77065; G0279

== ENCOUNTER → 2021-03-26 10:43 | Outpatient (CLI) | payer MEDICARE, OTHER, SELFPAY | PROVIDERS: PCP Physician Assistant Medical; Referring Provider Internal Medicine Hematology & Oncology; Visit Provider Internal Medicine Hematology & Oncology | DX: M85.88 Other specified disorders of bone density and structure, other site (principal); C50.912 Malignant neoplasm of unspecified site of left female breast; Z78.0 Asymptomatic menopausal state; Z90.722 Acquired absence of ovaries, bilateral; Z87.891 Personal history of nicotine dependence | CPT/HCPCS: 77080; 77081 ==

== ENCOUNTER → 2021-03-27 10:29 | Outpatient (CLI) | payer MEDICARE, OTHER, SELFPAY ==
--- NOTE | 2021-03-27 | DI.MG.S_ITS ---
BILATERAL DIGITAL SCREENING MAMMOGRAM 3D/2D WITH CAD POST LUMPECTOMY: 03/27/2021 CLINICAL: Family history of breast cancer. Routine screening. Personal history of bilateral breast cancer. Comparison is made to exams dated: 03/26/2020 ultrasound, 03/26/2020 mammogram, 08/23/2019 mammogram, and 08/02/2019 mammogram - [facility]. There are scattered fibroglandular elements in both breasts. Current study was also evaluated with a Computer Aided Detection (CAD) system. There are calcifications in both breasts. There also are post operative findings in both breasts. No significant masses, calcifications, or other findings are seen in either breast. There has been no significant interval change. IMPRESSION: BENIGN There is no mammographic evidence of malignancy. A 1 year screening mammogram is recommended. This exam was interpreted at Station ID: [id number]. NOTE: For mammograms, a report in lay terms will be sent to the patient. Approximately 15% of breast malignancies will not be visualized mammographically. In the management of a palpable breast mass, a negative mammogram must not discourage biopsy of a clinically suspicious lesion. Electronically Signed By: Harpal Meehan M.D. aty/:03/27/2021 14:53:04 letter sent: Normal Exam ACR BI-RADS Category 2: Benign Finding(s) 3342F
== END ==
PROVIDERS: PCP Physician Assistant Medical; Referring Provider Physician Assistant Medical; Visit Provider Physician Assistant Medical
DX: Z12.31 Encounter for screening mammogram for malignant neoplasm of breast (principal); Z85.3 Personal history of malignant neoplasm of breast; Z80.3 Family history of malignant neoplasm of breast
CPT/HCPCS: 77063; 77067